=== PATIENT | female | born 1955 | race Caucasian/White ===

== ENCOUNTER 2023-11-11 09:57 | Emergency (ER) | payer OTHER ==
[2023-11-11 10:32] LABS: BILIRUBIN,URINE NEGATIVE (NEGATIVE); GLUCOSE, URINE (UA) NEGATIVE (NEGATIVE); KETONES,URINE (UA) NEGATIVE (NEGATIVE); LEUKOCYTE ESTERASE, URINE MODERATE (NEGATIVE); NITRITE,URINE NEGATIVE (NEGATIVE); OCCULT BLOOD,URINE LARGE (NEGATIVE); PROTEIN,URINE NEGATIVE (NEGATIVE); UROBILINOGEN,URINE 0.2 (NORMAL) E.U./dL (NORMAL)
--- NOTE | 2023-11-11 10:32 | ED Physician Documentation ---
PD HPI FEMALE - Stated complaint Stated Complaint: - Chief complaint Chief Complaint: UTI - History obtained from History obtained from: Patient - History of Present Illness Timing - onset: How many days ago (2-3) Timing - duration: Days (2-3) Timing - details: Gradual onset, Still present Associated symptoms: Dysuria, Urinary frequency. No: Fever, Back pain, Vaginal discharge Similar symptoms before: Diagnosis (UTI many years ago) Review of Systems Constitutional: denies: Fever GI: denies: Nausea Skin: denies: Rash PD PAST MEDICAL HISTORY - Past Medical History Past Medical History: Yes Cardiovascular: Atrial fibrillation - Past Surgical History Past Surgical History: Yes /[employer]: Mastectomy - Present Medications Home Medications: Ambulatory Orders Medication Instructions Recorded Confirmed Phenazopyridine HCl [Pyridium] 100 mg PO TID PRN #10 tablet 11/11/23 cephALEXin [Keflex] 500 mg PO TID #15 cap 11/11/23 - Allergies Allergies/Adverse Reactions: Allergies Allergy/AdvReac Type Severity Reaction Status Date / Time No Known Drug Allergies Allergy Verified 11/11/23 09:59 - Social History Does the pt smoke?: No Smoking Status: Never smoker Does the pt drink ETOH?: No Does the pt have substance abuse?: No - Immunizations Immunizations are current?: Yes PD ED PE NORMAL - Vitals Vital signs reviewed: Yes - General General: Alert and oriented X 3, No acute distress, Well developed/nourished - Abdomen Abdomen: Soft, Non tender - Female Female : Deferred - Back Back: No CVA TTP Results - Vitals Vitals: Vital Signs - 24 hr 11/11/23 11/11/23 10:00 11:25 Temperature 36.7 C 36.7 C Heart Rate 64 62 Respiratory 18 16 Rate Blood Pressure 132/77 H 132/78 H O2 Saturation 96 99 - Labs Labs: Laboratory Tests 11/11/23 10:12 Urine Color LIGHT YELLOW Urine Clarity HAZY Urine pH 7.0 Ur Specific Offerman 1.010 Urine Protein NEGATIVE Urine Glucose (UA) NEGATIVE Urine Ketones NEGATIVE Urine Occult Blood LARGE H Urine Nitrite NEGATIVE Urine Bilirubin NEGATIVE Urine Urobilinogen 0.2 (NORMAL) Ur Leukocyte Esterase MODERATE H Urine RBC 0-5 Urine WBC >25 H Urine WBC Clumps PRESENT Ur Squamous Epith Cells RARE Squamous Urine Bacteria Few Ur Microscopic Review INDICATED Urine Culture Comments INDICATED PD Medical Decision Making - ED course Complexity details: considered differential (UTI symptoms with UA c/w that. No pyelo symptoms. ), d/w patient Departure - Departure Disposition: 01 Home, Self Care Clinical Impression: Cystitis Condition: Stable Record reviewed to determine appropriate education?: Yes Instructions: ED UTI Cystitis Female Prescriptions: cephALEXin [Keflex] 500 mg PO TID #15 cap Phenazopyridine HCl [Pyridium] 100 mg PO TID PRN #10 tablet PRN Reason: Abdominal Pain Comments: Your symptoms and your initial urinalysis are consistent with a bladder infection. We can treat this with cephalexin antibiotic 3 times daily for 5 days. In addition for symptoms initially can use phenazopyridine 3 times a day. This asked to numb the inside the bladder and will turn your urine a little orange so not to worry. Tylenol ibuprofen can be used as well for discomfort. Stay well-hydrated. Recheck if not improved well over the next several days. I sent your prescription to [facility] in [place]. Forms: PCP List Discharge Date/Time: 11/11/23 11:25
[2023-11-11 10:33] LABS: CLARITY,URINE HAZY (CLEAR)
[2023-11-11 10:59] LABS: RBC,URINE 0-5 /HPF (0-5); SQUAMOUS EPITHELIAL CELL,UR RARE Squamous (<= Few); WBC CLUMPS,URINE PRESENT; WBC,URINE >25 /HPF (0-5)
[2023-11-11 11:00] LABS: BACTERIA,URINE Few /HPF (None Seen)
[2023-11-11] MEDS: PHENAZOPYRIDINE 100 MG TABLET PO STA (11:21)
[2023-11-11] MEDS: cephALEXin 250 MG CAPSULE PO STA (11:21)
[2023-11-11 11:31] VITALS: BP 132/78; O2SAT 99
== END 2023-11-11 11:25 | disposition home or self-care (01) ==
LOC: ED 09:57
DX: N30.00 Acute cystitis without hematuria (principal); I48.91 Unspecified atrial fibrillation
CPT/HCPCS: 81001; 87086; 99283; A9270; 81003